=== PATIENT | female | born 1995 | race Caucasian/White ===

== ENCOUNTER 2019-01-05 06:13 | Emergency (ER) | payer OTHER ==
[~2019-01-05] VITALS: Ht 165.1 cm; Wt 100.0 kg
[~2019-01-05 06:13] MED LIST: ZOFRAN ODT4 MG PO
[2019-01-05 06:15] VITALS: TEMP 98.7
[2019-01-05] MEDS ORDERED: EMGALITY120 MG/1 M SQ (06:30)
[2019-01-05] MEDS ORDERED: CRUTCHES MC (06:48)
[2019-01-05] MEDS ORDERED: NORCO 325 MG-51 TAB PO (06:48)
[2019-01-05 07:50] VITALS: BP 102/58; PULSE 91
== END 2019-01-05 07:50 | disposition home or self-care (01) ==
LOC: COL.ER 06:13
DX: S83.004A Unspecified dislocation of right patella, initial encounter (principal); G43.909 Migraine, unspecified, not intractable, without status migrainosus; E66.9 Obesity, unspecified; X50.1XXA Overexertion from prolonged static or awkward postures, initial encounter; Y92.009 Unspecified place in unspecified non-institutional (private) residence as the place of occurrence of the external cause
CPT/HCPCS: J2405; J3010; J7030; L1846